=== PATIENT | female | born 1970 | race Caucasian/White ===

== ENCOUNTER 2022-12-02 19:30 | Emergency (ER) | payer OTHER, SELFPAY ==
--- NOTE | ~2022-12-02 | XR_ITS ---
EXAMINATION: XR chest 2V Exam Date/Time: 12/02/2022 19:42 CDT HISTORY: Cough congestion x 1 week. Smoker Comparison: None. RESULT: Lines, tubes, and devices: None. Lungs and pleura: Apical pleural scarring. Reticulonodular opacities with cuffing. Hyperinflation. Cardiomediastinal silhouette: Stable. Other: No acute osseous or upper abdominal finding. IMPRESSION: Pulmonary opacities may represent bronchiolitis, as can be seen with atypical infection, asthma, aspi ration, and small airways disease. Emphysema. Reviewed, dictated and finalized at location K. IMPRESSION: Pulmonary opacities may represent bronchiolitis, as can be seen with atypical i nfection, asthma, aspiration, and small airways disease. Emphysema.
[2022-12-02 19:39] VITALS: BP 154/96; PULSE 99; RESP 18; TEMP 36.5; O2SAT 95
--- NOTE | 2022-12-02 19:47 | ED.GENADULT ---
HPI - General Adult General Chief complaint: Dental/Oral Stated complaint: cough / tooth infection Source: patient Mode of arrival: ambulatory Limitations: no limitations History of Present Illness HPI narrative: Patient presents for evaluation of cough for last 6 days. Cough is productive of yellow-green sputum. She has associated shortness of breath. Denies any fever, chills, nausea, vomiting. No recent sick contacts to her knowledge. She took some Robitussin for symptoms which seem to help. She smokes 3/4 pack per day. She also reports right lower dental pain for awhile . She does not provide me with a descriptive quality or numerical rating to the pain. Related Data Home Medications Medication Instructions Recorded Confirmed buprenorphine 8 mg-naloxone 2 mg 1 film sublingual BID 12/02/22 12/02/22 sublingual film Allergies Allergy/AdvReac Type Severity Reaction Status Date / Time acetaminophen AdvReac abd pain Verified 12/02/22 19:44 aspirin AdvReac abd pain Verified 12/02/22 19:44 caffeine AdvReac abd pain Verified 12/02/22 19:44 DIPHENHYDRAMINE HCL AdvReac jittery Uncoded 12/02/22 19:44 Review of Systems Review of Systems: CONSTITUTIONAL: Denies fever, chills, or sweats. EYES: Denies visual changes, redness, or discharge. ENT: Reports right lower dental pain. Denies rhinorrhea, congestion, sore throat, or otalgia. CARDIOVASCULAR: Denies chest pain, palpitations, or edema. RESPIRATORY: Reports productive cough of yellow/green sputum with shortness of breath. GASTROINTESTINAL: Denies abdominal pain, nausea, vomiting, or diarrhea. GENITOURINARY: Denies dysuria or hematuria. SKIN: Denies rash or itching. MUSCULOSKELETAL: Denies back pain, joint pain, or myalgia. NEUROLOGIC: Denies headache, numbness, dizziness, or weakness. PSYCHIATRIC: Denies anxiety or depression. [facility] Past Medical History Medical History (Updated 12/02/22 @ 20:14 by Dipak Watson, EDILBERTO, TITA) No pertinent past medical history Surgical History Surgical History History of tubal ligation Family History Family History Mother Family history of chronic obstructive pulmonary disease Family history of lung cancer Father Family history of lung cancer Family history of throat cancer Sibling Family history of malignant neoplasm of testis Social History Social History (Updated 12/02/22 @ 19:52 by Dipak Watson, [facility], ) Smoking packs per day: 0.75 Smoking cigarettes per day: 15.0 Smoking status: Current every day smoker Alcohol intake: never Gender identity (if verbalized by the patient): Female Exam Narrative: GENERAL: Well-appearing, well-nourished, and in no acute distress. HEAD: Normocephalic, atraumatic. EYES: PERRLA and EOMI. ENT: Teeth her nicotine stain. Tooth number 30 is fracture. No visible or palpable abscess. Nares clear, no rhinorrhea or epistaxis. Mucous membranes moist. Oropharynx without tonsillar hypertrophy exudate or other lesions. Bilateral TMs pearly duarte nonbulging NECK: Supple. No adenopathy or masses. No carotid bruits or JVD CHEST: Rales noted bilaterally. Cough present on exam. HEART: Regular rate and rhythm. No murmur heard. Normal peripheral pulses. ABDOMEN: Soft, nontender, nondistended, normal active bowel sounds. EXTREMITIES: Normal range of motion. No edema. SKIN: Warm, dry, no rash. NEURO: No focal deficits. Alert and oriented x3. PSYCH: Normal mood and affect. Course Course Emergency Course: THIS IS A 52 OLD FEMALE WHO PRESENTED FOR EVALUATION OF RESPIRATORY SYMPTOMS AND DENTAL PAIN. SHE HAS EVIDENCE OF TOOTH FRACTURE ON EXAM. WILL DISCHARGE WITH AUGMENTIN. ADVISED ON SMOKING CESSATION. CHEST X-RAY SHOWED OPACITIES CONSISTENT WITH BRONCHIOLITIS. WILL DISCHARGE WITH PREDNISONE AND ALBUTEROL. FOLLOW UP WITH PRIMARY PROVIDER.
== END 2022-12-02 20:14 | disposition home or self-care (01) ==
PROVIDERS: Emergency Provider Nurse Practitioner
DX: J21.9 Acute bronchiolitis, unspecified (principal); S02.5XXA Fracture of tooth (traumatic), initial encounter for closed fracture; X58.XXXA Exposure to other specified factors, initial encounter; F17.210 Nicotine dependence, cigarettes, uncomplicated
CPT/HCPCS: 71046; 99213; G0463

== ENCOUNTER 2023-05-15 19:16 | Emergency (ER) | payer OTHER, SELFPAY ==
[2023-05-15 19:24] VITALS: BP 127/82; PULSE 116; RESP 16; TEMP 36.4; O2SAT 98
--- NOTE | 2023-05-15 19:35 | ED.GENADULT ---
HPI - General Adult General Chief complaint: Extremity Injury, Upper Stated complaint: tooth pain/left finger injury Source: patient and RN notes reviewed History of Present Illness HPI narrative: 52 yo F presents to urgent care with complaints of left 4th finger pain and bilateral lower molar pain. Pt states she accidentally hit her left 4th finger with a drill bit 4 weeks ago while putting a roof on. Pt states her wound was much worse initially and has gone down but still continues to have pain next to the nail. Denies any drainage from the area. Denies any numbness or tingling. Pt also report hx of dental pain but yesterday was eating a chip when she felt her left lower molar break. Pt states she can now feel swelling to her left lower cheek. Denies any fevers, chills, chest pain, SOB, or vomiting. Denies any problems swallowing or breathing. Related Data Home Medications Medication Instructions Recorded Confirmed buprenorphine 8 mg-naloxone 2 mg 1 film sublingual BID 12/02/22 05/15/23 sublingual film Allergies Allergy/AdvReac Type Severity Reaction Status Date / Time acetaminophen AdvReac abd pain Verified 05/15/23 19:29 aspirin AdvReac abd pain Verified 05/15/23 19:29 DIPHENHYDRAMINE HCL AdvReac jittery Uncoded 05/15/23 19:29 Review of Systems Review of Systems: Pertinent positives and pertinent negatives per HPI. [facility] Past Medical History Medical History (Updated 05/15/23 @ 19:36 by Meri Diaz, [employer]) No pertinent past medical history Surgical History Surgical History History of tubal ligation Family History Family History Mother Family history of chronic obstructive pulmonary disease Family history of lung cancer Father Family history of lung cancer Family history of throat cancer Sibling Family history of malignant neoplasm of testis Social History Social History (Updated 12/02/22 @ 19:52 by Dipak Watson, FAMILY SERVICES MANAGER, ) Smoking packs per day: 0.75 Smoking cigarettes per day: 15.0 Smoking status: Current every day smoker Alcohol intake: never Gender identity (if verbalized by the patient): Female Comments At the time of my signature, I reviewed and agree with the nursing past medical, surgical, social, and family history. There is no relevant family history pertinent to the patient complaint. Exam Narrative: GENERAL: This is a well-nourished, well-developed patient, in no apparent distress. HEAD: normocephalic, atraumatic. EYES: Sclera clear/white. Vision is grossly intact. EARS: External ears normal, auditory canals clear and without drainage. Hearing grossly intact. NOSE: External nose normal with no obvious nasal discharge, nares without redness, no rhinorrhea. THROAT: Mucous membranes moist, posterior pharynx clear. MOUTH: poor dentition throughout. broken # 19 noted with adjacent swelling to gums. NECK: Neck supple, non-tender without lymphadenopathy, masses or thyromegaly. CARDIOVASCULAR: Regular rate and rhythm without murmurs, gallops, or rubs. RESPIRATORY: Clear to auscultation. Breath sounds equal bilaterally. No wheezes, rales, or rhonchi. SKIN: warm, intact with no suspicious lesions or rash, good texture and turgor. NEURO: awake, alert, and oriented to person, place and time. There were no obvious focal neurologic abnormalities. EXTREMITIES:Mild erythema noted to left 4th digit, dorsal side at the DIP joint. Open sore noted. no drainage, induration, or fluctuance noted. Pt has good strength with flexion and extension of the joint. Cap refill < 3 sec. Course Course Level of Care: Express Care Visit Vital Signs Vital signs: Vital Signs Temperature 97.5 F L 05/15/23 19:24 Pulse Rate 116 H 05/15/23 19:24 Respiratory Rate 16 05/15/23 19:24 Blood Pressure 127/82 05/15/23 19:24 Pulse Oximetry 98
== END 2023-05-15 19:39 | disposition home or self-care (01) ==
PROVIDERS: Emergency Provider Nurse Practitioner Family
DX: K04.7 Periapical abscess without sinus (principal); L08.9 Local infection of the skin and subcutaneous tissue, unspecified; F17.210 Nicotine dependence, cigarettes, uncomplicated
CPT/HCPCS: 99213; G0463

== ENCOUNTER 2023-06-03 11:07 | Emergency (ER) | payer OTHER, SELFPAY ==
[2023-06-03 11:15] VITALS: BP 111/86; PULSE 116; RESP 22; TEMP 36.8; O2SAT 93
--- NOTE | 2023-06-03 11:25 | ED.URI ---
HPI - URI/Sore Throat General Chief Complaint: Upper Respiratory Infection Stated Complaint: Cough and Shortness of Breath Time Seen by Provider: 06/03/23 11:26 Source: patient, RN notes reviewed and old records reviewed Mode of arrival: ambulatory Limitations: no limitations History of Present Illness HPI Narrative: 52 year old female who presents to express care with complaints of cough and congestion with some chest tightness with cough and breathing for one week duration with some wheezing noted. Patient reports that she has had some chills last night and felt feverish.Patient reports that she has been taking some Advil and using Robitussin cough syrup. Patient has long history of tobacco use.Patient reports some dyspnea at rest with SAO2 93% on room air. Patient reports that she has been around sick grand children. MD elicited complaint: cough and other (shortness of breath, headaches, chills) Pertinent past history: other (tobacco abuse) Onset (ago): week(s) (1) Consistency: progressively worsening Pain scale (0-10): 7 Description of mucous: yellow and green Able to tolerate fluids by mouth: Yes Exacerbating factors: exertion and deep breaths Treatments prior to arrival: ibuprofen and other (Robitussin) Related Data Home Medications Medication Instructions Recorded Confirmed buprenorphine 8 mg-naloxone 2 mg 1 film sublingual BID 12/02/22 06/03/23 sublingual film Allergies Allergy/AdvReac Type Severity Reaction Status Date / Time acetaminophen AdvReac abd pain Verified 06/03/23 11:17 aspirin AdvReac abd pain Verified 06/03/23 11:17 DIPHENHYDRAMINE HCL AdvReac jittery Uncoded 06/03/23 11:17 Review of Systems Review of Systems: CONSTITUTIONAL:Reports malaise, chills, sweats, or fever. EYES: Denies visual changes, redness, or discharge. ENT: Reports rhinorrhea, congestion, sinus pain,no otalgia and no sore throat. CARDIOVASCULAR: Denies chest pain, palpitations, or edema.states some tightness in chest with cough RESPIRATORY: Reports cough.? Reports dyspnea. GASTROINTESTINAL: Denies abdominal pain, nausea, vomiting, diarrhea SKIN: Denies rash or itching. MUSCULOSKELETAL: Reports myalgia. NEUROLOGIC: reports headache. All systems reviewed & are unremarkable except as noted in HPI and below PMFSH Past Medical History Medical History (Updated 06/05/23 @ 09:49 by Anne Menendez NP) Tobacco abuse Surgical History Surgical History History of tubal ligation Family History Family History Mother Family history of chronic obstructive pulmonary disease Family history of lung cancer Father Family history of lung cancer Family history of throat cancer Sibling Family history of malignant neoplasm of testis Social History Social History (Updated 06/05/23 @ 09:47 by Anne Menendez NP) Smoking packs per day: 1 Smoking cigarettes per day: 20.0 Years smoked: 25 Smoking pack-years: 25.00 Smoking status: Current every day smoker Alcohol intake: never Substance use type: former substance user and opiates Last use: on suboxone Gender identity (if verbalized by the patient): Female Comments At time of signature, agree with nursing past medical, surgical, social and family history. There is no relevant family history pertinent to the presenting complaint Exam Narrative: GENERAL: Well-appearing, fair-nourished, and in no acute distress. HEAD: Normocephalic EYES: PERRLA, conjunctivae clear ENT: Nares clear, turbinates edematous and erythematous, yellow tinged discharge. Mucous membranes moist. TM pearly duarte with dull light reflex bilaterally; no tragal tenderness. Oropharynx erythematous without lesions. Tonsils not enlarged and without exudate, no drooling, no hoarseness, no trismus, uvula midline.post nasal drainage noted NECK: Supple. No lymphad
[2023-06-03] MEDS: ALBUTEROL SULFATE NEB 2.5 MG/3 ML INH INHALATION (11:43)
[2023-06-03] MEDS: IPRATROPIUM BR 0.02% INH SOLN 0.5 MG/2.5 ML VIAL INHALATION (11:43)
[2023-06-03 12:05] VITALS: PULSE 100; RESP 18; O2SAT 94
== END 2023-06-03 12:05 | disposition home or self-care (01) ==
PROVIDERS: Emergency Provider Registered Nurse
DX: J40 Bronchitis, not specified as acute or chronic (principal); F17.210 Nicotine dependence, cigarettes, uncomplicated
CPT/HCPCS: 99213; G0463

== ENCOUNTER 2023-08-27 19:00 | Emergency (ER) | payer OTHER, SELFPAY ==
[2023-08-27 19:10] VITALS: BP 118/98; PULSE 118; RESP 20; TEMP 36.6; O2SAT 94
--- NOTE | 2023-08-27 19:17 | ED.URI ---
HPI - URI/Sore Throat General Chief Complaint: Upper Respiratory Infection Stated Complaint: Shortness of Breath/Cough Time Seen by Provider: 08/27/23 19:17 Source: patient Mode of arrival: ambulatory Limitations: no limitations History of Present Illness HPI Narrative: 53-year-old female presented for complaint of cough, nasal congestion, and upper chest tightness with wheezing over the past week. Took one prednisone left over from bronchitis. daily smoker 1/2ppd. Patient also endorses right lower dental pain for few days. She states his tooth is broken and had planned to have it extracted, following with a dentist in 2 weeks. Related Data Home Medications Medication Instructions Recorded Confirmed buprenorphine 8 mg-naloxone 2 mg 1 film sublingual BID 12/02/22 08/27/23 sublingual film Allergies Allergy/AdvReac Type Severity Reaction Status Date / Time acetaminophen AdvReac abd pain Verified 08/27/23 19:29 aspirin AdvReac abd pain Verified 08/27/23 19:29 DIPHENHYDRAMINE HCL AdvReac jittery Uncoded 06/03/23 11:17 Review of Systems Review of Systems: CONSTITUTIONAL: Denies body aches, fever, chills, or sweats. EYES: Denies visual changes, redness, or discharge. ENT: reports rhinorrhea, congestion, denies sore throat, or otalgia. CARDIOVASCULAR: Denies chest pain, palpitations, or edema. RESPIRATORY: Reports cough, sob, wheezing. GASTROINTESTINAL: Denies abdominal pain, nausea, vomiting, or diarrhea. SKIN: Denies rash, itching, or wounds. MUSCULOSKELETAL: Denies back pain, joint pain, or myalgia. NEUROLOGIC: Denies headache, numbness, tingling, or weakness. All systems reviewed & are unremarkable except as noted in HPI and below PMFSH Past Medical History Medical History Tobacco abuse Surgical History Surgical History History of tubal ligation Family History Family History Mother Family history of chronic obstructive pulmonary disease Family history of lung cancer Father Family history of lung cancer Family history of throat cancer Sibling Family history of malignant neoplasm of testis Social History Social History Smoking packs per day: 1 Smoking cigarettes per day: 20.0 Years smoked: 25 Smoking pack-years: 25.00 Smoking status: Current every day smoker Alcohol intake: never Substance use type: former substance user and opiates Last use: on suboxone Gender identity (if verbalized by the patient): Female Comments At time of signature, I have reviewed and agree with nursing past medical, surgical, social and family history unless otherwise noted. Please see nursing chart for further information. There is no relevant family history pertinent to the presenting complaint Exam Narrative: GENERAL: mildly ill-appearing, in no acute distress. EYES: EOMI. No redness or drainage. Conjunctivae normal. ENT: Mucous membranes pink and moist. Dental pain #30, broken tooth to gumline; mild swelling. No swelling/ induration below mandible. CHEST: No respiratory distress. Coarse/Wheezing to all wheeler. Moist bottom finisher cough. Speaks full sentences, no distress HEART: Regular rate and rhythm. No murmur appreciated. ABDOMEN: Soft, nontender, nondistended, normal active bowel sounds. EXTREMITIES: Normal range of motion. No edema. SKIN: Warm, dry, no rash. Capillary refill normal. Normal skin turgor. NEURO: Alert and oriented x3. Gait steady. PSYCH: talkative Course Course Emergency Course: Patient is aware of diagnosis, understands and agrees to treatment plan. Anticipatory guidance given. Patient agrees to follow-up as directed and is aware of reasons to seek care at the emergency department. Portions of this record may have been created with voice recogn
[2023-08-27] MEDS: predniSONE 20 MG TABLET 60 MG PO (19:35)
== END 2023-08-27 19:45 | disposition home or self-care (01) ==
PROVIDERS: Emergency Provider Nurse Practitioner Family
DX: J40 Bronchitis, not specified as acute or chronic (principal); K08.89 Other specified disorders of teeth and supporting structures; F17.210 Nicotine dependence, cigarettes, uncomplicated
CPT/HCPCS: 99213; G0463; J7512

== ENCOUNTER 2024-01-23 17:40 | Emergency (ER) | payer OTHER, SELFPAY ==
--- NOTE | ~2024-01-23 | XR_ITS ---
EXAMINATION: XR chest 2V DATE: 01/23/2024 18:03 INDICATION: Cough and shortness of breath. TECHNIQUE: Frontal and lateral views of the chest were obtained. COMPARISON: Chest 2 views 12/02/2022 FINDINGS: The lungs are hyperexpanded. There is mild scarring at the lung apices. A calcified right l tee nodule is consistent with old granulomatous disease. No pleural effusion or pneumothorax. The hea rt size is normal. IMPRESSION: 1. Stable mild scarring at the lung apices. Reviewed, dictated and finalized at location E.
[2024-01-23 17:48] VITALS: BP 124/70; PULSE 119; RESP 16; TEMP 36.4; O2SAT 95
[2024-01-23] MEDS: methylPREDNISolone SOD SUCC 125 MG VIAL IM (18:03)
[2024-01-23] MEDS: IPRATROPIUM 0.5 MG/ALBUTEROL SULFATE 2.5 MG AMPUL.NEB 3 ML INHALATION (18:04)
--- NOTE | 2024-01-23 18:17 | ED.GENADULT ---
HPI - General Adult General Chief complaint: Upper Respiratory Infection Stated complaint: fever/cough Source: patient Mode of arrival: ambulatory Limitations: no limitations History of Present Illness HPI narrative: Patient presents for evaluation of cough and shortness of breath for the last 10 days. Cough is productive of yellow/green sputum. She reports fever and chills. She denies any nausea, vomiting, diarrhea, sore throat. No recent sick contacts to her knowledge. She has been taking Dimetapp, Tylenol, ibuprofen for her symptoms. She smokes 3/4 ppd. She has been using her albuterol inhaler with some improvement in her symptoms thereafter. Related Data Home Medications Medication Instructions Recorded Confirmed buprenorphine 8 mg-naloxone 2 mg 1 film sublingual BID 12/02/22 01/23/24 sublingual film Allergies Allergy/AdvReac Type Severity Reaction Status Date / Time acetaminophen AdvReac abd pain Verified 01/23/24 17:48 aspirin AdvReac abd pain Verified 01/23/24 17:48 DIPHENHYDRAMINE HCL AdvReac jittery Uncoded 01/23/24 17:48 Review of Systems Review of Systems: CONSTITUTIONAL: Reports fever and chills EYES: Denies visual changes, redness, or discharge. ENT: Denies rhinorrhea, congestion, sore throat, or otalgia. CARDIOVASCULAR: Denies chest pain, palpitations, or edema. RESPIRATORY: Reports productive cough and SOB GASTROINTESTINAL: Denies abdominal pain, nausea, vomiting, or diarrhea. GENITOURINARY: Denies dysuria or hematuria. SKIN: Denies rash or itching. MUSCULOSKELETAL: Denies back pain, joint pain, or myalgia. NEUROLOGIC: Denies headache, numbness, dizziness, or weakness. PSYCHIATRIC: Denies anxiety or depression. [facility] Past Medical History Medical History Tobacco abuse Surgical History Surgical History History of tubal ligation Family History Family History Mother Family history of chronic obstructive pulmonary disease Family history of lung cancer Father Family history of lung cancer Family history of throat cancer Sibling Family history of malignant neoplasm of testis Social History Social History Smoking packs per day: 0.75 Smoking cigarettes per day: 15.0 Years smoked: 25 Smoking pack-years: 18.75 Smoking status: Current every day smoker Alcohol intake: never Substance use type: former substance user and opiates Last use: on suboxone Gender identity (if verbalized by the patient): Female Exam Narrative: GENERAL: Well-appearing, well-nourished, and in no acute distress. HEAD: Normocephalic, atraumatic. EYES: PERRLA and EOMI. ENT: Nares clear, no rhinorrhea or epistaxis. Mucous membranes moist. Oropharynx without tonsillar hypertrophy exudate or other lesions. Bilateral TMs pearly duarte nonbulging NECK: Supple. No adenopathy or masses. No carotid bruits or JVD CHEST: Diffuse inspiratory and expiratory wheezing and rales. Cough present on exam HEART: Regular rate and rhythm. No murmur heard. Normal peripheral pulses. ABDOMEN: Soft, nontender, nondistended, normal active bowel sounds. EXTREMITIES: Normal range of motion. No edema. SKIN: Warm, dry, no rash. NEURO: No focal deficits. Alert and oriented x3. PSYCH: Normal mood and affect. Course Course Emergency Course: This is a 53-year-old female who presented for evaluation of respiratory symptoms. Initially her heart rate was elevated on arrival. It normalized on my exam. She is given a breathing treatment and steroids. Chest x-ray without evidence of infection however her clinical picture is consistent with community-acquired pneumonia. Will discharge her with Augmentin and azithromycin. She was advised not to smoke. She has albuterol at home.
== END 2024-01-23 18:35 | disposition home or self-care (01) ==
PROVIDERS: Emergency Provider Nurse Practitioner
DX: J18.9 Pneumonia, unspecified organism (principal); F17.210 Nicotine dependence, cigarettes, uncomplicated
CPT/HCPCS: 71046; 96372; 99213; G0463; J2919

== ENCOUNTER 2024-06-21 17:26 | Emergency (ER) | payer OTHER, SELFPAY ==
[2024-06-21 17:34] VITALS: BP 127/97; PULSE 103; RESP 18; TEMP 36.7; O2SAT 96
--- NOTE | 2024-06-21 17:34 | ED.GENADULT ---
HPI - General Adult General Chief complaint: Upper Respiratory Infection Stated complaint: Cough Time Seen by Provider: 06/21/24 17:57 Source: patient, RN notes reviewed and old records reviewed Mode of arrival: ambulatory Limitations: no limitations History of Present Illness HPI narrative: 53-year-old female to [facility] with complaint head congestion, postnasal drainage, productive cough with thick green sputum for 3 weeks. Patient states that she started wheezing and experiencing shortness of breath yesterday. 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 Patient history of tobacco use. Patient also complaining of left lower dental pain that is chronic become acutely worse over the past 3 days. Patient cannot recall last appointment with dentist. Patient requesting antibiotics. Patient resting comfortably in exam room in no acute distress. Patient hypertensive and tachycardic in triage. Respirations even and nonlabored. Patient able to speak in full sentences without difficulty. Related Data Home Medications Medication Instructions Recorded Confirmed buprenorphine 8 mg-naloxone 2 mg 1 film sublingual BID 12/02/22 06/21/24 sublingual film Allergies Allergy/AdvReac Type Severity Reaction Status Date / Time acetaminophen AdvReac abd pain Verified 06/21/24 17:40 aspirin AdvReac abd pain Verified 06/21/24 17:40 DIPHENHYDRAMINE HCL AdvReac jittery Uncoded 06/21/24 17:40 Review of Systems Review of Systems: All systems reviewed & are unremarkable except as noted in HPI and below Constitutional: Constitutional: Reports no additional constitutional complaints Eyes: Eyes: Reports no additional eye complaints ENT: Reports as per HPI, Reports dental pain, Reports nasal congestion and Reports post nasal drip Cardiovascular: Cardiovascular: Reports no additional cardiovascular complaints, Denies chest pain and Denies dyspnea Respiratory: Respiratory: Reports as per HPI, Reports change in phlegm color, Reports cough, Reports dyspnea and Reports wheezing Musculoskeletal: Musculoskeletal: Reports no additional musculoskeletal complaints Neurologic: Reports system reviewed and no additional complaints, except as documented Psychiatric: Psychiatric: Reports no additional psychiatric complaints [facility] Past Medical History Medical History Tobacco abuse Surgical History Surgical History History of tubal ligation Family History Family History Mother Family history of chronic obstructive pulmonary disease Family history of lung cancer Father Family history of lung cancer Family history of throat cancer Sibling Family history of malignant neoplasm of testis Social History Social History Smoking packs per day: 0.75 Smoking cigarettes per day: 15.0 Years smoked: 25 Smoking pack-years: 18.75 Smoking status: Current every day smoker Alcohol intake: never 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 There is no relevant family history pertinent to the patient complaint. Exam Const: General: cooperative, no acute distress, alert, anxious, ill appearing chronically and well nourished Nutritional Appearance: well nourished Orientation/consciousness: patient oriented x3 Limitations: no limitations HENMT: Head: normal to inspection Ears: external ears normal Face/Nose/Sinus: Normal external nose present, Normal nares present, normal facial exam, No erythema and No edema Face and sinus: normal facial exam, no erythema and no edema Mouth: Yes Normal oral and palatal mucosa present Teeth and gingiva: abnormal tooth and associated gingiva lower left second molar , caries and gingiva abnormal diffusely erythematous and tender Throat: postnasal drainage Eyes: General: appearance normal, both eyes and all related structures Neck: Neck: normal visual inspection, full ROM and no meningeal signs Lymphatic: no lymphadenopathy noted and no lymphedema noted Chest: Chest palpation & inspection: normal inspection of the chest Resp: Effort & Inspection: normal respiratory effort and able to speak in complete sentences Auscultation: clear to auscultation bilaterally and diminished lung sounds bilateral in the lower lung wheeler Cardio: Jugular venous distension: no JVD Rate: tachycardic Rhythm: regular rhythm Back/Spine/Pelvis: Cervical Spine: cervical ROM normal Skin: General skin exam: normal color, no rashes or lesions noted and turgor normal Neuro: General: patient oriented x3, gait normal, moves all extremities and no meningeal signs Speech: normal speech Gait exam (Neuro): Normal gait present Extrem: General: normal to inspection, full ROM and capillary refill normal Psych: Appearance: grossly normal and well kempt Course Course Emergency Course: Some parts of this dictation were generated by voice recognition software and may contain typographical and/or grammatical inaccuracies. Level of Care: Express Care Visit Vital Signs Vital signs: Vital Signs Temperature 36.7 C 06/21/24 17:34 Pulse Rate 103 H 06/21/24 17:34 Respiratory Rate 18 06/21/24 17:34 Blood Pressure 127/97 H 06/21/24 17:34 Pulse Oximetry 96 06/21/24 17:34 Oxygen Delivery Room Air 06/21/24 17:34 Temperature 36.7 C 06/21/24 17:34 Pulse Rate 103 H 06/21/24 17:34 Respiratory Rate 18 06/21/24 17:34 Blood Pressure 127/97 H 06/21/24 17:34 Pulse Oximetry 96 06/21/24 17:34 Oxygen Delivery Room Air 06/21/24 17:34 reviewed Medical Decision Making MDM Narrative Medical decision making narrative: 53-year-old female to Express Care with complaint head congestion, postnasal drainage, productive cough with thick green sputum for 3 weeks. Patient states that she started wheezing and experiencing shortness of breath yesterday. 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 Patient history of tobacco use. Patient also complaining of left lower dental pain that is chronic become acutely worse over the past 3 days. Patient cannot recall last appointment with dentist. Patient requesting antibiotics. Patient resting comfortably in exam room in no acute distress. Patient hypertensive and tachycardic in triage. Respirations even and nonlabored. Patient able to speak in full sentences without difficulty Patient is sitting anxiously in exam room nontoxic in appearance. on exam, posterior oropharynx with purulent drainage, erythematous. Cough present. Bilateral low sounds diminished. Patient declined x-ray due to financial reasons. Left lower 2nd and 3rd molars with extensive dental caries and fractures. Surrounding gingival erythema tenderness. Patient appropriate for outpatient treatment and follow-up. Discharge instructions reviewed with patient, as well as provided in writing per nursing staff. The instructions also include specific and strict return/GO TO THE ER as well as f/u information. All questions have been answered, and the patient deny any further questions with discharge and discharge plan. Some parts of this dictation were generated by voice recognition software and may contain typographical and/or grammatical inaccuracies. Differential Diagnosis Differential Diagnosis: Dental abscess, respiratory infection, COVID, influenza, pneumonia Vital Signs Vital Signs: Vital Signs Temperature 36.7 C 06/21/24 17:34 Pulse Rate 103 H 06/21/24 17:34 Respiratory Rate 18 06/21/24 17:34 Blood Pressure 127/97 H 06/21/24 17:34 Pulse Oximetry 96 06/21/24 17:34 Oxygen Delivery Room Air 06/21/24 17:34 Temperature 36.7 C 06/21/24 17:34 Pulse Rate 103 H 06/21/24 17:34 Respiratory Rate 18 06/21/24 17:34 Blood Pressure 127/97 H 06/21/24 17:34 Pulse Oximetry 96 06/21/24 17:34 Oxygen Delivery Room Air 06/21/24 17:34 Discharge Plan Discharge Clinical Impression: Dental abscess, Tobacco abuse, Productive cough Patient Disposition: Home, Self-Care Condition: Stable Additional Instructions: -Alternate Tylenol and Motrin per package directions for fever or pain. -Antihistamine medication such as Benadryl at night and Zyrtec/Claritin/Vilma during the day can help improve symptoms. -Use Flonase twice a day for 5 days then daily to help reduce the inflammation and dry up your sinuses. -You can also use Sudafed or Mucinex. Be sure to drink plenty of water with these medications at least 8 ounces with every dose and it is important to drink 8 to 10 glasses of water per day. Water is a natural decongestant -Eat and drink things that are easy to swallow, like tea or soup, or popsicles. -Oral rinses such as: Salt water gargles and/or may use topical anesthetic (eg. Chloraseptic spray) or lozenges to relieve dryness or throat pain). -Frequent hand washing or hand floral specialist is one of the best ways to prevent spread of infection. -Using a vaporizer or humidifier at night will also help thin secretions and help with coughing up phlegm. -Follow up with primary care provider in 2-3 days if condition is not improving; or seek ER visit if you have trouble breathing, cannot drink enough fluids, have muffled voice, difficulty opening your mouth, or severe swelling. your blood pressure today is 127/97 it is important you follow-up with your primary care provider regarding your blood pressure Prescriptions: New amoxicillin-pot clavulanate 875-125 mg tablet 1 tablet PO Q12H Qty: 20 0RF No Action buprenorphine-naloxone 8-2 mg film 1 film sublingual BID Follow-up/Referrals: UNKNOWN,DOCTOR [Primary Care Provider] -
== END 2024-06-21 18:15 | disposition home or self-care (01) ==
PROVIDERS: Emergency Provider Nurse Practitioner Family
DX: K04.7 Periapical abscess without sinus (principal); F17.210 Nicotine dependence, cigarettes, uncomplicated; R05.9 Cough, unspecified
CPT/HCPCS: 99213; G0463

== ENCOUNTER 2024-09-10 18:35 | Emergency (ER) | payer OTHER, SELFPAY ==
--- OUTSIDE RECORDS SUMMARY | 2024-09-10 18:37 | XMS_ITS | Clinical Summary ---
Author Organization [facility] Address [address] [place] [address] Phone Care Team Providers Care Appeals Court Associate Justice Name Role Phone Provider, None Primary Care Provider Unavailabl e Allergies No known active allergies Medications gabapentin (NEURONTIN) 100 MG Capsule Take 1 tablet by mouth nightly x 3 days, then 2 tablets nightly x 3 days, then 3 tablets nightly thereafter. 30 Cap 9 Active nicotine (NICOTINE STEP 1) 21 MG/24HR PATCH 24 HR 1 Patch by Transdermal route every 24 hours. 30 Patch 9 Active albuterol 108 (90 Base) MCG/ACT Aerosol Solution take 1-2 Puffs by inhalation every 4 hours as needed for Wheezing or Cough. 1 Inhaler 1 9 Active Active Problems No known active problems Family History Medical History Relation Name Comments Cancer Brother Lung Cancer Father Lung Cancer Mother Relation Name Status Comments Brother Father Mother Social History Tobacco Use Types Packs/Day Years Used Date Smoking Tobacco: Every Day Cigarettes Smokeless Tobacco: Never Tobacco Cessation:Ready to Q uit: No; Counseling Given: Yes Alcohol Use Standard Drinks/Week Comments No 0 (1 standard drink = 0.6 oz pur e alcohol) PHQ-2 Answer Date Recorded PHQ-2 Score 1 04/09/2019 Comments No Sex and Gender Information Value Date Recorded Sex Assigned at Not on file Legal Sex Female 8:42 PM CDT Gender Identity Not on file Sexual Orientation Not on file Last Filed Vital Signs Vital Sign Reading Time Taken Comments Blood Pressure 104/68 12/31/2018 9:12 AM CDT Pulse 99 12/31/2018 9:12 AM CDT Temperature 36.7 C (98 F) 12/31/2018 9:12 AM CDT Respiratory Rate 16 12/31/2018 9:12 AM CDT Oxygen Saturation 98% 12/31/2018 9:12 AM CDT Inhaled Oxygen Concentration - - Weight 43.2 kg (95 lb 3.2 oz) 12/31/2018 9:12 AM CDT Height 157.5 cm (5' 2 ) 12/31/2018 9:12 AM CDT Body Mass Index 17.41 12/31/2018 9:12 AM CDT Plan of Treatment Health Maintenance Due Date Last Done Comments Hepatitis C Virus (HCV) Screening 1968 TdaP Immunization 1968 Hepatitis B Immunization (1 of 3 - 19+ 3-dose series) 1987 Pap Smear 1989 Cervical Cancer Screening (CCS) 1998 HPV/Cotest 1998 Colonoscopy 2013 Colorectal Cancer Screening 2013 Cologuard 2018 Immunochemical Fecal Occult Blood 2018 Mammogram 2018 Pneumococcal Immunization (5 0+ years) (1 of 1 - PCV) 2018 Zoster Immunization (1 of 2) 2018 Influenza Immunization (#1) 2024 SARS-COV-2 Immunization ( - 2023- season) 2024 Respiratory Syncytial Virus (RSV) Immunization (Adult) (1 - 1-dose 75+ series) 2043 Meningococcal Immunization (ACWY) Aged Out No longer eligible based on patient's age to complete this topic Pneumococcal Immunization Combined Aged Out No longer eligible based on patient's age to complete this topic Rotavirus Immunization Aged Out No lo nger eligible based on patient's age to complete this topic Insurance MEDICAID [place] Care Teams Appeals Court Associate Justice Relationship Specialty Start Date End Date Provider, None OR PCP - General 08/09/16
[2024-09-10 18:47] VITALS: BP 145/77; PULSE 104; RESP 16; TEMP 36.4; O2SAT 97
--- NOTE | 2024-09-10 19:27 | ED_ITS ---
HPI - General Adult General Chief complaint: Upper Respiratory Infection Stated complaint: fever,cough Source: patient Mode of arrival: ambulatory Limitations: no limitations History of Present Illness HPI narrative: Patient presents for evaluation of sick symptoms for last week. She indicates she has experience sinus congestion, postnasal drainage, frontal headache, sinus pressure, cough, and shortness of breath. Her grandkids had the flu about 1.5 weeks ago. Pt initially had flu-like symptoms, which improved. She then developed her current symptoms. She smokes 3/4 ppd. She has tried OTC meds with mild improvement in her symptoms thereafter. Related Data Home Medications ?Medication ?Instructions ?Recorded ?Confirmed ?Last Taken ?Type buprenorphine 8 mg-naloxone 2 mg 1 film sublingual BID 12/02/22 09/10/24 Unknown History sublingual film Allergies Allergy/AdvReac Type Severity Reaction Status Date / Time acetaminophen AdvReac abd pain Verified 09/10/24 18:51 aspirin AdvReac abd pain Verified 09/10/24 18:51 DIPHENHYDRAMINE HCL AdvReac jittery Uncoded 09/10/24 18:51 Review of Systems Review of Systems: CONSTITUTIONAL: Denies fever, chills, or sweats. EYES: Denies visual changes, redness, or discharge. ENT: Reports sinus congestion, nasal drainage and otalgia CARDIOVASCULAR: Denies chest pain, palpitations, or edema. RESPIRATORY: Reports cough and shortness of GASTROINTESTINAL: Denies abdominal pain, nausea, vomiting, or diarrhea. GENITOURINARY: Denies dysuria or hematuria. SKIN: Denies rash or itching. MUSCULOSKELETAL: Denies back pain, joint pain, or myalgia. NEUROLOGIC: Reports headache. Denies numbness, dizziness, or weakness. PSYCHIATRIC: Denies anxiety or depression. [facility] Past Medical History Medical History Tobacco abuse Surgical History Surgical History History of tubal ligation Family History Family History Mother Family history of chronic obstructive pulmonary disease Family history of lung cancer Father Family history of lung cancer Family history of throat cancer Sibling Family history of malignant neoplasm of testis Social History Social History Smoking packs per day: 0.75 Smoking cigarettes per day: 15.0 Years smoked: 25 Smoking pack-years: 18.75 Smoking status: Current every day smoker Alcohol intake: never Substance use type: former substance user and opiates Last use: on suboxone Gender identity (if verbalized by the patient): Female Exam Narrative: GENERAL: Well-appearing, well-nourished, and in no acute distress. HEAD: Normocephalic, atraumatic. EYES: PERRLA and EOMI. ENT: Nares clear, no rhinorrhea or epistaxis. Mucous membranes moist. Oropharynx without tonsillar hypertrophy exudate or other lesions. Bilateral TMs pearly duarte nonbulging NECK: Supple. No adenopathy or masses. No carotid bruits or JVD CHEST: Wheezing and rales noted bilaterally. Cough present on exam. HEART: Regular rate and rhythm. No murmur heard. Normal peripheral pulses. ABDOMEN: Soft, nontender, nondistended, normal active bowel sounds. EXTREMITIES: Normal range of motion. No edema. SKIN: Warm, dry, no rash. NEURO: No focal deficits. Alert and oriented x3. PSYCH: Normal mood and affect. Course Course Emergency Course: This is a 54-year-old female presented for evaluation of sick symptoms. She initially had flu-like symptoms improved with recurrence of symptoms thereafter. Clinically I am concerned she has pneumonia. I recommended chest x-ray. She declined. She did agree to empiric treatment for pneumonia with Augmentin jw thromycin. I will also send her home with an albuterol inhaler and prednisone. She will follow-up with her primary care provider and go to the emergency department for worsening symptoms. Advised on smoking cessation. Patient in agreement with plan care Level of Care: Express Care Visit Vital Signs Vital signs: Vital Signs Temperature 36.4 C 09/10/24 18:47 Pulse Rate 104 H 09/10/24 18:47 Respiratory Rate 16 09/10/24 18:47 Blood Pressure 145/77 H 09/10/24 18:47 Pulse Oximetry 97 09/10/24 18:47 Oxygen Delivery Room Air 09/10/24 18:47 Temperature 36.4 C 09/10/24 18:47 Pulse Rate 104 H 09/10/24 18:47 Respiratory Rate 16 09/10/24 18:47 Blood Pressure 145/77 H 09/10/24 18:47 Pulse Oximetry 97 09/10/24 18:47 Oxygen Delivery Room Air 09/10/24 18:47 Medical Decision Making Vital Signs Vital Signs: Vital Signs Temperature 36.4 C 09/10/24 18:47 Pulse Rate 104 H 09/10/24 18:47 Respiratory Rate 16 09/10/24 18:47 Blood Pressure 145/77 H 09/10/24 18:47 Pulse Oximetry 97 09/10/24 18:47 Oxygen Delivery Room Air 09/10/24 18:47 Temperature 36.4 C 09/10/24 18:47 Pulse Rate 104 H 09/10/24 18:47 Respiratory Rate 16 09/10/24 18:47 Blood Pressure 145/77 H 09/10/24 18:47 Pulse Oximetry 97 09/10/24 18:47 Oxygen Delivery Room Air 09/10/24 18:47 Discharge Plan Discharge Clinical Impression: At high risk for pneumonia Patient Disposition: Home, Self-Care Condition: Stable Instructions: Antibiotic Form, Community Acquired Pneumonia (DC) Patient Language: Gabonese Prescriptions: New amoxicillin-pot clavulanate 875-125 mg tablet 1 tablet PO Q12H Qty: 20 0RF methylprednisolone [Medrol (Kashif)] 4 mg tablets,dose pack See Rx Instructions .ROUTE .COMPLEX Qty: 21 0RF Rx Instructions: for 6 days prednisone 50 mg tablet 50 mg PO DAILY Qty: 5 0RF albuterol sulfate [Ventolin HFA] 90 mcg/actuation HFA aerosol inhaler 2 puff inhalation QID PRN (Reason: shortness of breath or wheezing) Qty: 8.5 0RF No Action buprenorphine-naloxone 8-2 mg film 1 film sublingual BID Follow-up/Referrals: Beni Gusman MD [Physician] - Time of Disposition: 19:25
== END 2024-09-10 19:27 | disposition home or self-care (01) ==
PROVIDERS: Emergency Provider Nurse Practitioner
DX: R05.9 Cough, unspecified (principal); F17.210 Nicotine dependence, cigarettes, uncomplicated
CPT/HCPCS: 99213; G0463

== ENCOUNTER 2024-11-18 17:40 | Emergency (ER) | payer OTHER, SELFPAY ==
--- OUTSIDE RECORDS SUMMARY | 2024-11-18 17:43 | XMS_ITS | Clinical Summary ---
Author Organization [facility] Address [address] [place] [address] Phone Care Team Providers Care Copier Technician Name Role Phone Provider, None Primary Care [...] of 3 - 19+ 3-dose series) 1987 Colonoscopy 2013 Colorectal Cancer Screening 2013 Cologuard 2018 Immunochemical Fecal Occult Blood 2018 Pneumococcal Immunization (5 0+ years) (1 of 1 - PCV) 2018 Zoster Immunization (1 of 2) 2018 Influenza Immunization (#1) 2024 SARS-COV-2 Immunization (1 - 2023- season) 2024 Respiratory Syncytial Virus (RSV) Immunization (Adult) (1 - 1-dose 75+ series) 2043 Meningococcal Immunization (ACWY) Aged Out No longer eligible based on patient's age to complete this topic Rotavirus Immunization Aged Out No lo nger eligible based on patient's age to complete this topic Insurance MEDICAID [place] Care Teams Copier Technician Relationship Specialty Start Date End Date Provider, None [place] PCP - General 08/09/16
[2024-11-18 17:50] VITALS: BP 120/78; PULSE 103; RESP 20; TEMP 36.1; O2SAT 100
--- NOTE | 2024-11-18 18:25 | ED.DENTAL ---
HPI - Dental/Oral General Chief complaint: Dental/Oral Stated complaint: tooth pain Time Seen by Provider: 11/18/24 18:00 Source: patient Mode of arrival: ambulatory Limitations: no limitations History of Present Illness HPI Narrative: Freddy is a 54-year-old female patient presenting to the clinic today with complaints left lower jaw all dental pain. Reports that she has had pain to this tooth for over 1 year however she ate something yesterday that was hard and has increase in pain and she has some gum swelling. She denies any fevers, chills, body aches Related Data Home Medications ?Medication ?Instructions ?Recorded ?Confirmed ?Last Taken ?Type buprenorphine 8 mg-naloxone 2 mg 1 film sublingual BID 12/02/22 09/10/24 Unknown History sublingual film Allergies Allergy/AdvReac Type Severity Reaction Status Date / Time DIPHENHYDRAMINE HCL AdvReac jittery Uncoded 11/18/24 18:02 Review of Systems Review of Systems: Pertinent positives per HPI. Patient denies any fever, chills, rash, headache, visual changes, dizziness, cough, runny nose, sore throat, shortness of breath, chest pain, palpitations, nausea, vomiting, diarrhea, constipation, abdominal pain, or any urinary issues. REPLACED BY [facility] Past Medical History Medical History Tobacco abuse Surgical History Surgical History History of tubal ligation Family History Family History Mother Family history of chronic obstructive pulmonary disease Family history of lung cancer Father Family history of lung cancer Family history of throat cancer Sibling Family history of malignant neoplasm of testis Social History Social History Smoking packs per day: 0.75 Smoking cigarettes per day: 15.0 Years smoked: 25 Smoking pack-years: 18.75 Smoking status: Current every day smoker Alcohol intake: never 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 There is no relevant family history pertinent to the patient complaint. Exam Narrative: General: Well-developed, well nourished, in no apparent distress Head: Normocephalic, atraumatic Eyes: Pupils equally round and reactive to light bilaterally, EOM intact, sclera and conjunctive clear, no discharge, lids normal Ears: TMs intact and clear, ear canals clear, no drainage, grossly hearing normal. Nose: Nares patent, no discharge, no inflammation, no sinus tenderness. Mouth: Oropharynx without lesions or masses, very poor dentition with multiple fractures of teeth and decay, tenderness to palpation over the left lower gel and over the 1st molar. MMM. Neck: Supple, trachea midline, no enlargement of anterior or posterior cervical nodes, no thyroid masses or goiter palpable. Cardio: Regular rate and rhythm, s1 and s2 normal, no murmur appreciated. Resp: Clear to auscultation bilaterally anteriorly and posteriorly, no rhonchi, rales, wheezing or rubs Course Course Emergency Course: Portions of this record may have been created with voice recognition software. Level of Care: Express Care Visit Vital Signs Vital signs: Vital Signs Temperature 36.1 C L 11/18/24 17:50 Pulse Rate 103 H 11/18/24 17:50 Respiratory Rate 20 11/18/24 17:50 Blood Pressure 120/78 11/18/24 17:50 Pulse Oximetry 100 11/18/24 17:50 Oxygen Delivery Room Air 11/18/24 17:50 Temperature 36.1 C L 11/18/24 17:50 Pulse Rate 103 H 11/18/24 17:50 Respiratory Rate 20 11/18/24 17:50 Blood Pressure 120/78 11/18/24 17:50 Pulse Oximetry 100 11/18/24 17:50 Oxygen Delivery Room Air 11/18/24 17:50 Vital signs reviewed MDM - Dental/Oral MDM Narrative Medical decision making narrative: At the time of visit patient is resting comfortably on the exam table. Patient appears to be nontoxic. Plan: I suspect patient has a toothache. Prescription for amoxicillin was sent to the pharmacy. Supportive measures were discussed with the patient and they voiced understanding discharge instructions and agrees to treatment plan. Return precautions reviewed Differential Diagnosis Differential diagnosis: Likely gingival abscess, dental caries, toothache, dental abscess, fracture of tooth and aphthous ulcer Discharge Plan Discharge Clinical Impression: Toothache, Dental caries Patient Disposition: Home Condition: Stable Instructions: Antibiotic Form, Toothache (ED) Additional Instructions: May take Tylenol/Motrin as needed for pain May apply Orajel to the affected area to help alleviate pain May apply cool or warm compress to the area to help alleviate pain and swelling Take amoxicillin as prescribed Follow-up with your dentist as soon as possible Patient Language: Luxembourgish Prescriptions: New amoxicillin 875 mg tablet 875 mg PO Q12H 10 Days Qty: 20 0RF No Action buprenorphine-naloxone 8-2 mg film 1 film sublingual BID albuterol sulfate [Ventolin HFA] 90 mcg/actuation HFA aerosol inhaler 2 puff inhalation QID PRN (Reason: shortness of breath or wheezing) Qty: 8.5 0RF Follow-up/Referrals: UNKNOWN,DOCTOR [Primary Care Provider] - Time of Disposition: 18:25 Quality NIHSS Nursing Documentation ED NIHSS nursing documentation: reviewed/agree
== END 2024-11-18 18:32 | disposition home or self-care (01) ==
PROVIDERS: Emergency Provider Nurse Practitioner Family
DX: K02.9 Dental caries, unspecified (principal); F17.210 Nicotine dependence, cigarettes, uncomplicated
CPT/HCPCS: 99213; G0463

== ENCOUNTER 2024-12-16 11:20 | Emergency (ER) | payer OTHER, SELFPAY ==
[2024-12-16 11:24] VITALS: BP 130/79; PULSE 96; RESP 20; TEMP 36.6; O2SAT 97
--- OUTSIDE RECORDS SUMMARY | 2024-12-16 11:24 | XMS_ITS | Clinical Summary ---
Author Organization [facility] Address [address] [place] [address] Phone Care Team Providers Care Mobile Security Specialist Name Role Phone Provider, None Primary Care [...] age to complete this topic Insurance MEDICAID [place] Care Teams Mobile Security Specialist Relationship Specialty Start Date End Date Provider, None [place] PCP - General 08/09/16
--- NOTE | 2024-12-16 11:37 | ED_ITS ---
HPI - Skin/Abscess/Foreign Bdy General Chief complaint: Skin/Abscess/Foreign Body Stated complaint: Neck Skin Irritation, Possible Bug Bite Time Seen by Provider: 12/16/24 11:37 Source: patient Mode of arrival: ambulatory Limitations: no limitations History of Present Illness HPI narrative: 54-year-old female presented for complaint of a bump on the spine. First noticed some tenderness about a week ago. States 2 days ago the site was itching, and she noticed it to be raised and tender. Says her daughter poked it with a needle and had some drainage. Related Data Home Medications ?Medication ?Instructions ?Recorded ?Confirmed ?Last Taken ?Type buprenorphine 8 mg-naloxone 2 mg 1 film sublingual BID 12/02/22 09/10/24 Unknown History sublingual film Allergies Allergy/AdvReac Type Severity Reaction Status Date / Time DIPHENHYDRAMINE HCL AdvReac jittery Uncoded 12/16/24 11:30 Review of Systems Review of Systems: CONSTITUTIONAL: Denies body aches, fever, chills, or sweats. EYES: Denies visual changes, redness, or discharge. ENT: Denies rhinorrhea, congestion CARDIOVASCULAR: Denies chest pain, palpitations, or edema. RESPIRATORY: Denies cough or dyspnea. GASTROINTESTINAL: Denies abdominal pain, nausea, vomiting, or diarrhea. SKIN: per HPI MUSCULOSKELETAL: Denies back pain, joint pain, or myalgia. NEUROLOGIC: Denies headache, numbness, tingling, or weakness. [facility] Past Medical History Medical History Tobacco abuse Surgical History Surgical History History of tubal ligation Family History Family History Mother Family history of chronic obstructive pulmonary disease Family history of lung cancer Father Family history of lung cancer Family history of throat cancer Sibling Family history of malignant neoplasm of testis Social History Social History Smoking packs per day: 0.75 Smoking cigarettes per day: 15.0 Years smoked: 25 Smoking pack-years: 18.75 Smoking status: Current every day smoker Alcohol intake: never Substance use type: former substance user and opiates Last use: on suboxone Gender identity (if verbalized by the patient): Female Comments At time of signature, I have reviewed and agree with nursing past medical, surgical, social and family history unless otherwise noted. Please see nursing chart for further information. There is no relevant family history pertinent to the presenting complaint Exam Narrative: GENERAL: Well-appearing HEAD: Normocephalic, atraumatic. EYES: conjunctivae clear, and EOMI. ENT: Mucous membranes moist. Oropharynx without edema, erythema or lesions. NECK: Supple. No lymphadenopathy CHEST: Clear to auscultation. HEART: Regular rate and rhythm. SKIN: Warm, dry. Abscess noted over mid thoracic spine 2cm diameter, red, tender, fluctuant center. No surrounding induration. NEURO: Alert and oriented x3. Course Course Emergency Course: Patient is aware of diagnosis, understands and agrees to treatment plan. Anticipatory guidance given. Patient agrees to follow-up as directed and is aware of reasons to seek care at the emergency department. Portions of this record may have been created with voice recognition software Level of Care: Express Care Visit Vital Signs Vital signs: Vital Signs Temperature 97.9 F 12/16/24 11:24 Pulse Rate 96 12/16/24 11:24 Respiratory Rate 20 12/16/24 11:24 Blood Pressure 130/79 12/16/24 11:24 Pulse Oximetry 97 12/16/24 11:24 Oxygen Delivery Room Air 12/16/24 11:24 Temperature 97.9 F 12/16/24 11:24 Pulse Rate 96 12/16/24 11:24 Respiratory Rate 20 12/16/24 11:24 Blood Pressure 130/79 12/16/24 11:24 Pulse Oximetry 97 12/16/24 11:24 Oxygen Delivery Room Air 12/16/24 11:24 Reviewed Procedures Abscess I/D back: Date of Incision: 12/16/24 Local Anesthetic: lidocaine 1% Amount of anesthesia used (mL): 1 Technique: needle aspiration Irrigation: No Packing used?: none I&D Results: Pus and Blood Abcess I&D Additional Comments: The procedure and its alternatives were reviewed with patient. Risks were reviewed with patient including infection and damage to nearby structures. Patient provided verbal informed consent. The patient was positioned appropriately. Local anesthesia achieved. Single straight Incision made to center of most fluctuant area using #18g needle. Moderate amount of thick purulent discharge expelled with manual pressure. Pt tolerated the procedure well, no complications. Dressing applied JUAN MIGUEL and bandaid. MDM - Skin/Abscess/Foreign Bdy MDM Narrative Medical decision making narrative: Discussed physical exam findings; tolerated I&D abscess on back. Advised supportive measures and signs/symptoms to go to the ER. Pt is appropriate for outpt treatment and f/u. Differential Diagnosis Differential diagnosis: Likely abscess of skin or subcutaneous tissue, viral exanthem, dermatophytosis, urticaria, herpes zoster, cellulitis, eczema, insect bites, impetigo and contact dermatitis Discharge Plan Discharge Clinical Impression: Abscess of skin or subcutaneous tissue Patient Disposition: Home Condition: Stable Instructions: Antibiotic Form, Abscess (ED) Additional Instructions: You had an abscess drained today. You may shower and Cleanse the site with warm soapy water Warm compresses at least 4 times a day to the site to help expel any additional drainage. Keep your wound covered while draining Take antibiotic as directed Tylenol and ibuprofen every 8 hours for pain as needed Follow up with your primary care physician in 3 days for a wound check. Go to the Emergency Department immediately if you develop any of the following symptoms: Fevers, Increased redness, pain, or swelling around where your abscess was, generalized weakness or vomiting or any other concerns Patient Language: Moroccan Prescriptions: New doxycycline hyclate 100 mg tablet 100 mg PO BID 7 Days Qty: 14 0RF No Action buprenorphine-naloxone 8-2 mg film 1 film sublingual BID albuterol sulfate [Ventolin HFA] 90 mcg/actuation HFA aerosol inhaler 2 puff inhalation QID PRN (Reason: shortness of breath or wheezing) Qty: 8.5 0RF Follow-up/Referrals: UNKNOWN,DOCTOR [Primary Care Provider] -
[2024-12-16] MEDS: LIDOCAINE 1% LOCAL INJ 2 ML AMPUL 4 ML INFILTRATE (11:49)
== END 2024-12-16 12:16 | disposition home or self-care (01) ==
PROVIDERS: Emergency Provider Nurse Practitioner Family
DX: L02.212 Cutaneous abscess of back [any part, except buttock and flank] (principal); F17.210 Nicotine dependence, cigarettes, uncomplicated
CPT/HCPCS: 10060; 99213; G0463; J2003

== ENCOUNTER 2025-05-17 19:30 | Emergency (ER) | payer OTHER, SELFPAY ==
--- NOTE | 2025-05-17 19:31 | ED.SKABFB ---
HPI - Skin/Abscess/Foreign Bdy General Chief complaint: Skin/Abscess/Foreign Body Stated complaint: finger tips burn Time Seen by Provider: 05/17/25 19:30 Source: patient Mode of arrival: ambulatory Limitations: no limitations History of Present Illness HPI narrative: Freddy is a 54 year old female patient presenting to the clinic today with c/o burn to her finger tips x 2 weeks. She reports she was using some resin in molding and developed a chemical burn to the tips of her fingers. Her fingers are cracked and skin is irritated/itching. No fevers, chills, body aches. She is concerned about infection. Related Data Home Medications ?Medication ?Instructions ?Recorded ?Confirmed ?Last Taken ?Type buprenorphine 8 mg-naloxone 2 mg 1 film sublingual BID 12/02/22 09/10/24 Unknown History sublingual film Allergies Allergy/AdvReac Type Severity Reaction Status Date / Time DIPHENHYDRAMINE HCL AdvReac jittery Uncoded 12/16/24 11:30 Review of Systems Review of Systems: Pertinent positives per HPI. Patient denies any fever, chills, rash, headache, visual changes, dizziness, cough, runny nose, sore throat, shortness of breath, chest pain, palpitations, nausea, vomiting, diarrhea, constipation, abdominal pain, or any urinary issues. [facility] Past Medical History Medical History Tobacco abuse Surgical History Surgical History History of tubal ligation Family History Family History Mother Family history of chronic obstructive pulmonary disease Family history of lung cancer Father Family history of lung cancer Family history of throat cancer Sibling Family history of malignant neoplasm of testis Social History Social History Smoking packs per day: 0.75 Smoking cigarettes per day: 15.0 Years smoked: 25 Smoking pack-years: 18.75 Smoking status: Current every day smoker Alcohol intake: never 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 There is no relevant family history pertinent to the patient complaint. Exam Narrative: General: Well-developed, well nourished, in no apparent distress Head: Normocephalic, atraumatic. Cardio: Regular rate and rhythm, s1 and s2 normal, no murmur appreciated. Resp: Clear to auscultation bilaterally, no rhonchi, rales, wheezing or rubs. Integumentary: [place], warm, and dry, cracked skin-open wounds with some skin to the tips of her fingers on both hands-no redness or purulent discharge noted Course Course Emergency Course: Portions of this record may have been created with voice recognition software. Level of Care: Express Care Visit Vital Signs Vital signs: Vital signs reviewed MDM - Skin/Abscess/Foreign Bdy MDM Narrative Medical decision making narrative: At the time of visit patient is resting comfortably on the exam table. Patient appears to be nontoxic. C/o burn to her finger tips x 2 weeks. She reports she was using some resin in molding and developed a chemical burn to the tips of her fingers. Her fingers are cracked and skin is irritated/itching. No fevers, chills, body aches. She is concerned about infection. Cracked skin-open wounds with some skin to the tips of her fingers on both hands-no redness or purulent discharge noted Plan: I suspect patient has chemical leroy/eczema like reaction to her finger tips. No sign of infection. Patient is requesting Silvadene. Will send in prescription for Silvadene. Recommend moisturizing the skin. Watch for signs and symptoms of infection. Supportive measure were discussed with the patient and they voiced understanding discharge instructions and agrees to treatment plan. Return precautions reviewed Differential Diagnosis Differential diagnosis: Likely abscess of skin or subcutaneous tissue, viral exanthem, dermatophytosis, urticaria, herpes zoster, allergic reaction to drug, cellulitis, eczema, insect bites, impetigo, contact dermatitis and other Discharge Plan Discharge Clinical Impression: Chemical burn, Acute eczema of hand Patient Disposition: Home Condition: Stable Instructions: Antibiotic Form, Eczema (ED), Chemical Skin Burn (ED) Additional Instructions: No sign of infection in the clinic today Moisturize skin twice daily using an non scented moisturizer such as Lubriderm, Aquaphor, or Cetaphil May apply Silvadene cream as directed May take Tylenol/Motrin as needed for pain or fever Follow-up with your PCP for a wound check in 3-5 days Patient Language: Setswana Prescriptions: New silver sulfadiazine [Silvadene] 1 % cream 1 applic topical DAILY 7 Days Qty: 25 0RF Rx Instructions: apply a 1.5 mm thickness No Action buprenorphine-naloxone 8-2 mg film 1 film sublingual BID Follow-up/Referrals: UNKNOWN,DOCTOR [Non-Staff] Time of Disposition: 19:45 Quality NIHSS Nursing Documentation ED NIHSS nursing documentation: reviewed/agree
[2025-05-17 19:33] VITALS: BP 147/100; PULSE 111; RESP 18; TEMP 36.5; O2SAT 95
--- OUTSIDE RECORDS SUMMARY | 2025-05-17 20:35 | XMS_ITS | Clinical Summary ---
Author Organization [facility] Address [address] [place] [address] Phone Care Team Providers Care Car Body Mechanic Name Role Phone Provider, None Primary Care [...] 9:12 AM CDT Height 157.5 cm (5' 2) 12/31/2018 9:12 AM CDT Body Mass Index 17.41 12/31/2018 9:12 AM CDT Plan of Treatment Health Maintenance Due Date Last Done Comments Hepatitis C Virus (HCV) Screening 1968 TdaP Immunization 1968 Hepatitis B Immunization (1 of 3 - 19+ 3-dose series) 1987 Pap Smear 1989 Cervical Cancer Screening (CCS) 1998 HPV/Cotest 1998 Cologuard 2013 Colonoscopy 2013 Colorectal Cancer Screening 2013 Immunochemical Fecal Occult Blood 2013 Pneumococcal Immunization (5 0+ years) (1 of 1 - PCV) 2018 Zoster Immunization (1 of 2) 2018 Influenza Immunization (#1) 2025 SARS-COV-2 Immunization ( - season) 2025 Respiratory Syncytial Virus (RSV) Immunization (Adult) (1 - 1-dose 75+ series) 2043 Human Papillomavirus (HPV) Immunization Aged Out No longer eligible b ased on patient's age to complete this topic Meningococcal Immunization (ACWY) Aged Out No longer eligible based on patient's age to complete this topic Rotavirus Immunization Aged Out No lo nger eligible based on patient's age to complete this topic Insurance MEDICAID [place] Care Teams Car Body Mechanic Relationship Specialty Start Date End Date Provider, None [facility] PCP - General 08/09/16
== END 2025-05-17 19:55 | disposition home or self-care (01) ==
PROVIDERS: Emergency Provider Nurse Practitioner Family
DX: T65.891A Toxic effect of other specified substances, accidental (unintentional), initial encounter (principal); T23.422A Corrosion of unspecified degree of single left finger (nail) except thumb, initial encounter; T23.421A Corrosion of unspecified degree of single right finger (nail) except thumb, initial encounter; L30.9 Dermatitis, unspecified
CPT/HCPCS: 99213; G0463

== ENCOUNTER 2025-05-25 12:40 | Emergency (ER) | payer OTHER, SELFPAY ==
--- NOTE | 2025-05-25 12:48 | ED.GENADULT ---
HPI - General Adult General Chief complaint: Upper Respiratory Infection Stated complaint: Coughing / SOB Time Seen by Provider: 05/25/25 12:58 Source: patient, RN notes reviewed and old records reviewed Mode of arrival: ambulatory Limitations: no limitations History of Present Illness HPI narrative: 54-year-old female presents to the [facility] with coughing and shortness of breath since yesterday morning. Patient states that she was cleaning out an old moldy basement Precious night. states that she has tried taking Robitussin and ibuprofen. Patient is a 1 pack-a-day smoker since age 13. Denies any fevers or chest pain Onset (ago): day(s) (1) Related Data Home Medications ?Medication ?Instructions ?Recorded ?Confirmed ?Last Taken ?Type buprenorphine 8 mg-naloxone 2 mg 1 film sublingual BID 12/02/22 09/10/24 Unknown History sublingual film Allergies Allergy/AdvReac Type Severity Reaction Status Date / Time DIPHENHYDRAMINE HCL AdvReac jittery Uncoded 12/16/24 11:30 Review of Systems Review of Systems: All systems reviewed & are unremarkable except as noted in HPI and below Constitutional: Constitutional: Reports no additional constitutional complaints ENT: Reports system reviewed and no additional complaints, except as documented Cardiovascular: Cardiovascular: Reports no additional cardiovascular complaints, Denies chest pain and Denies dyspnea Respiratory: Respiratory: Reports as per HPI, Denies chest congestion, Reports cough and Reports dyspnea Musculoskeletal: Musculoskeletal: Reports no additional musculoskeletal complaints Integumentary/Breasts: Skin/Breast: Reports system reviewed and no additional complaints, except as docu PMFSH Past Medical History Medical History Tobacco abuse Surgical History Surgical History History of tubal ligation Family History Family History Mother Family history of chronic obstructive pulmonary disease Family history of lung cancer Father Family history of lung cancer Family history of throat cancer Sibling Family history of malignant neoplasm of testis Social History Social History Smoking packs per day: 0.75 Smoking cigarettes per day: 15.0 Years smoked: 25 Smoking pack-years: 18.75 Smoking status: Current every day smoker Alcohol intake: never 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 There is no relevant family history pertinent to the patient complaint. Exam Const: General: cooperative, no acute distress, well developed, alert, ill appearing chronically and well nourished Nutritional Appearance: well nourished Orientation/consciousness: patient oriented x3 Limitations: no limitations HENMT: Head: normal to inspection Ears: hearing grossly normal bilaterally, external ears normal, TM's normal bilaterally, EAC's normal, mastoids normal and no periauricular adenopathy Mouth: Yes Normal oral and palatal mucosa present, Yes lip normal, Yes tongue normal and Yes moist mucous membranes Throat: posterior oropharynx normal, uvula midline and no uvular edema Eyes: General: appearance normal, both eyes and all related structures Alignment and Position: alignment normal Neck: Neck: normal visual inspection, full ROM, no lymphadenopathy and no meningeal signs Chest: Chest palpation & inspection: normal inspection of the chest Resp: Effort & Inspection: normal respiratory effort and able to speak in complete sentences Auscultation: clear to auscultation bilaterally ( but diminished throughout), no crackles, no rales, no rhonchi and no wheezes Cardio: Rate: regular rate Skin: General skin exam: normal color and no rashes or lesions noted Neuro: General: patient oriented x3, gait normal, moves all extremities and no meningeal signs Cognition (Neuro): normal cognition Speech: normal speech Gait exam (Neuro): Normal gait present Extrem: General: normal to inspection, full ROM, capillary refill normal and normal gait Psych: Appearance: grossly normal and well kempt Mental Status: mental status grossly normal Speech and movement: Normal speech and movement present and Clear speech present Affect: normal affect Attitude: cooperative Course Course Level of Care: Express Care Visit Vital Signs Vital signs: Vital Signs Temperature 98.9 F 05/25/25 12:50 Pulse Rate 115 H 05/25/25 12:50 Respiratory Rate 20 05/25/25 12:50 Blood Pressure 114/66 05/25/25 12:50 Pulse Oximetry 96 05/25/25 12:50 Oxygen Delivery Room Air 05/25/25 12:50 Temperature 98.9 F 05/25/25 12:50 Pulse Rate 115 H 05/25/25 12:50 Respiratory Rate 20 05/25/25 12:50 Blood Pressure 114/66 05/25/25 12:50 Pulse Oximetry 96 05/25/25 12:50 Oxygen Delivery Room Air 05/25/25 12:50 Reviewed Medical Decision Making MDM Narrative Medical decision making narrative: patient sitting in exam room. Patient is nontoxic, vitals stable. Patient with a history of COPD, shortness of breath since yesterday after cleaning out a desk the basement. flu and COVID negative Breathing treatment given, lung sounds improved, patient reports that she does feel better patient appropriate for outpatient treatment with close follow-up. List of providers for primary care provider given Discharge instructions reviewed with patient, as well as provided in writing per nursing staff. The instructions also include specific and strict return/GO TO THE ER as well as f/u information. All questions have been answered, and the patient deny any further questions with discharge and discharge plan. Some parts of this dictation were generated by voice recognition software and may contain typographical and/or grammatical inaccuracies. Differential Diagnosis Differential Diagnosis: COPD exacerbation, bronchitis Medical Records Medical records reviewed: Yes I reviewed the external patient's medical records. Vital Signs Vital Signs: Vital Signs Temperature 98.9 F 05/25/25 12:50 Pulse Rate 115 H 05/25/25 12:50 Respiratory Rate 20 05/25/25 12:50 Blood Pressure 114/66 05/25/25 12:50 Pulse Oximetry 96 05/25/25 12:50 Oxygen Delivery Room Air 05/25/25 12:50 Temperature 98.9 F 05/25/25 12:50 Pulse Rate 115 H 05/25/25 12:50 Respiratory Rate 20 05/25/25 12:50 Blood Pressure 114/66 05/25/25 12:50 Pulse Oximetry 96 05/25/25 12:50 Oxygen Delivery Room Air 05/25/25 12:50 Reviewed Lab Data Lab results reviewed: Yes I reviewed the patient's lab results. Labs: Lab Results 05/25/25 Range/Units 13:23 POC Influenza A Ag Negative (Negative) POC Influenza B Ag Negative (Negative) POC SARS CoV-2 Ag Negative (Negative) Reviewed Critical Care Time Critical Care Time Critical Care Time: No Discharge Plan Discharge Clinical Impression: Bronchitis Patient Disposition: Home Condition: Stable Instructions: Acute Bronchitis (ED) Additional Instructions: Use the inhaler as prescribed take steroids as prescribed if you develop chest pain, significant shortness of breath or any new or worsening symptoms please go directly to the nearest emergency room Patient Language: [place] Prescriptions: New albuterol sulfate 90 mcg/actuation HFA aerosol inhaler 2 puff inhalation QID PRN (Reason: shortness of breath or wheezing) Qty: 6.7 0RF prednisone 50 mg tablet 50 mg PO DAILY Qty: 5 0RF No Action silver sulfadiazine [Silvadene] 1 % cream 1 applic topical DAILY 7 Days Qty: 25 0RF Rx Instructions: apply a 1.5 mm thickness buprenorphine-naloxone 8-2 mg film 1 film sublingual BID Follow-up/Referrals: PHYSICIAN,THREAD TWISTER [Primary Care Provider, Internal Medicine] Beni Gusman MD [Physician, Family Practice] Time of Disposition: 13:23
[2025-05-25 12:50] VITALS: BP 114/66; PULSE 115; RESP 20; TEMP 37.2; O2SAT 96
[2025-05-25] MEDS: IPRATROPIUM 0.5 MG/ALBUTEROL SULFATE 2.5 MG (BASE) AMPUL.NEB 3 ML INHALATION (13:11)
--- OUTSIDE RECORDS SUMMARY | 2025-05-25 13:13 | XMS_ITS | Clinical Summary ---
Author Organization [facility] Address [address] [place] [address] Phone Care Team Providers Care Single Resource Boss Name Role Phone Provider, None Primary Care [...] this topic Insurance MEDICAID [place] Care Teams Single Resource Boss Relationship Specialty Start Date End Date Provider, None [place] PCP - General 08/09/16
[2025-05-25 13:24] LABS: EDCOVIDSCREEN Negative (Negative); EDINFLUASCREEN Negative (Negative); EDINFLUBSCREEN Negative (Negative)
== END 2025-05-25 13:34 | disposition home or self-care (01) ==
PROVIDERS: Emergency Provider Nurse Practitioner
DX: J40 Bronchitis, not specified as acute or chronic (principal); Z20.822 Contact with and (suspected) exposure to COVID-19; F17.210 Nicotine dependence, cigarettes, uncomplicated
CPT/HCPCS: 87426; 87804; 94640; 99213; G0463